=== PATIENT | male | born 1945 | race Caucasian/White ===

== ENCOUNTER 2018-12-15 08:43 | Outpatient (CLI) | payer BC | END 2018-12-15 23:59 | disposition home or self-care (01) | LOC: VAS 08:43 | PROVIDERS: ATTEND Specialist | DX: I83.813 Varicose veins of bilateral lower extremities with pain (principal); Z87.891 Personal history of nicotine dependence | CPT/HCPCS: 93970 ==

== ENCOUNTER 2021-04-22 06:22 | Day surgery (SDC) | payer MEDICARE ==
[~2021-04-22] VITALS: Ht 188 cm; Wt 105.0 kg
[2021-04-22] MEDS ORDERED: normal saline 1000ml 1,000 ML IV SCH (06:55)
[2021-04-22] MEDS ORDERED: cefazolin/dext.iso 2gm/100ml 100 ML IV ONE (06:55)
[2021-04-22] MEDS ORDERED: FLO0.4C PO (06:57)
[2021-04-22] MEDS ORDERED: METO25TA6 PO (06:57)
[2021-04-22] MEDS ORDERED: ATOR20TA66 PO (06:57)
[2021-04-22] MEDS ORDERED: SUMA50TA17 PO (06:57)
[2021-04-22] MEDS ORDERED: TRIA1TAB3 PO (06:57)
[2021-04-22] MEDS ORDERED: Vitamin D3 (07:01)
[2021-04-22] MEDS ORDERED: ASPI-1265 PO (07:01)
[2021-04-22] MEDS ORDERED: OMEG1CAP2 (07:01)
[2021-04-22] MEDS ORDERED: MULT-1085 PO (07:01)
[2021-04-22 08:13] LABS: BASOPHILS % (AUTO) 0.4 % (0-1); EOSINOPHILS # (AUTO) 0.1 X10'3 (0-0.9); EOSINOPHILS % (AUTO) 1.2 % (0-6); HEMOGLOBIN 15.9 g/dl (14.0-17.9); LYMPHOCYTES # (AUTO) 8.1 X10'3 (1.1-4.8); LYMPHOCYTES % (AUTO) 72.5 % (21-51); MONOCYTES # (AUTO) 0.5 X10'3 (0-0.9); NEUTROPHILS # (AUTO) 2.4 X10'3 (1.8-7.7); WHITE BLOOD COUNT 11.2 X10'3 (4.5-11.0)
[2021-04-22 08:14] LABS: HEMATOCRIT 45.4 % (42.0-52.0); MEAN CORPUSCULAR HEMOGLOBIN 31.9 PG (27.0-31.0); MEAN CORPUSCULAR HGB CONC 35.1 g/dL (33.0-36.5); MEAN CORPUSCULAR VOLUME 90.9 FL (78-98); MEAN PLATELET VOLUME 8.1 FL (7.4-10.4); MONOCYTES % (AUTO) 4.3 % (2-12); NEUTROPHILS % (AUTO) 21.6 % (42-75); PLATELET COUNT 118 X10'3 (140-440); RED BLOOD COUNT 4.99 X10'6 (4.70-6.10); RED CELL DISTRIBUTION WIDTH 13.2 % (11.5-14.5)
[2021-04-22 09:22] LABS: TOTAL CELLS COUNTED 100
[2021-04-22 09:36] LABS: PLATELET ESTIMATE DECREASED
== END 2021-04-22 11:45 | disposition home or self-care (01) ==
LOC: SSTAY O 06:22
PROVIDERS: ATTEND Radiology Vascular & Interventional Radiology
DX: M80.08XA Age-related osteoporosis with current pathological fracture, vertebra(e), initial encounter for fracture (principal); Z53.8 Procedure and treatment not carried out for other reasons; M54.5 Low back pain; Z79.01 Long term (current) use of anticoagulants; Z79.899 Other long term (current) drug therapy
CPT/HCPCS: 36415; 85025; 85610; J7030; 85007

== ENCOUNTER 2021-05-05 06:25 | Day surgery (SDC) | payer MEDICARE ==
[~2021-05-05] VITALS: Ht 188 cm; Wt 105.1 kg
[2021-05-05] VITALS (9 sets, daily range): BP systolic 92–136; BP diastolic 57–77
[~2021-05-05 06:25] MED LIST: ASPI-1265 PO; ATOR20TA66 PO; FLO0.4C PO; METO25TA6 PO; MULT-1085 PO; OMEG1CAP2; SUMA50TA17 PO; TRIA1TAB3 PO; Vitamin D3
[2021-05-05] MEDS ORDERED: normal saline 1000ml 1,000 ML IV PRN (06:50)
[2021-05-05 07:29] LABS: EOSINOPHILS # (AUTO) 0.2 X10'3 (0-0.9); LYMPHOCYTES # (AUTO) 9.1 X10'3 (1.1-4.8); MEAN CORPUSCULAR HEMOGLOBIN 31.3 PG (27.0-31.0); MONOCYTES # (AUTO) 0.4 X10'3 (0-0.9); NEUTROPHILS % (AUTO) 19.5 % (42-75); RED CELL DISTRIBUTION WIDTH 13.1 % (11.5-14.5)
[2021-05-05 07:30] LABS: BASOPHILS # (AUTO) 0.1 X10'3 (0-0.2); BASOPHILS % (AUTO) 0.4 % (0-1); EOSINOPHILS % (AUTO) 1.3 % (0-6); HEMATOCRIT 45.1 % (42.0-52.0); HEMOGLOBIN 15.7 g/dl (14.0-17.9); LYMPHOCYTES % (AUTO) 75.5 % (21-51); MEAN CORPUSCULAR HGB CONC 34.8 g/dL (33.0-36.5); MEAN CORPUSCULAR VOLUME 89.9 FL (78-98); MEAN PLATELET VOLUME 7.9 FL (7.4-10.4); MONOCYTES % (AUTO) 3.3 % (2-12); NEUTROPHILS # (AUTO) 2.3 X10'3 (1.8-7.7); PLATELET COUNT 140 X10'3 (140-440); RED BLOOD COUNT 5.02 X10'6 (4.70-6.10)
[2021-05-05] MEDS ORDERED: cefazolin/dext.iso 2gm/100ml 100 ML IV ONE (07:35)
[2021-05-05] MEDS ORDERED: diphenhydrAMINE 50 mg/ml inj ONE (08:06)
[2021-05-05] MEDS ORDERED: midazolam 1 mg/ML 2ml injection ONE ×2 (08:07→09:28)
[2021-05-05] MEDS ORDERED: LIDOcaine 1%/PF 5ML 10 MG/ML VIAL ONE ×2 (08:07→09:27)
[2021-05-05] MEDS ORDERED: iohexol 300 MG/1 ML 50ml polymer ONE (08:07)
[2021-05-05] MEDS ORDERED: fentaNYL/PF 50MCG/1 ML 2ML syringe ONE ×2 (08:07→09:29)
[2021-05-05 08:37] LABS: TOTAL CELLS COUNTED 200
[2021-05-05 08:40] LABS: PLATELET ESTIMATE NORMAL
[2021-05-05] MEDS ORDERED: morphine 4 MG/ML inj SYRINge IV PRN (10:05)
[2021-05-05] MEDS ORDERED: HYDROcodone/acetaminophen 5mg/325mg tablet PO PRN (10:05)
[2021-05-05] MEDS ORDERED: normal saline 1000ml 1,000 ML IV SCH (10:05)
== END 2021-05-05 13:00 | disposition home or self-care (01) ==
LOC: SSTAY O 06:25
PROVIDERS: ATTEND Radiology Vascular & Interventional Radiology
DX: M80.08XA Age-related osteoporosis with current pathological fracture, vertebra(e), initial encounter for fracture (principal); M54.50 Low back pain, unspecified; I10 Essential (primary) hypertension; Z79.899 Other long term (current) drug therapy; Z79.01 Long term (current) use of anticoagulants; Z79.82 Long term (current) use of aspirin
CPT/HCPCS: 22514; 36415; 85025; 85610; 99152; 99153; C1713; J1200; J2250; J3010; J7030; Q9967; 85007